=== PATIENT | male | born 2005 | race African-American/Black ===

== ENCOUNTER 2024-08-31 10:10 | Emergency (ER) | payer SELFPAY ==
[~2024-08-31] VITALS: Ht 190.5 cm; Wt 65.8 kg
[2024-08-31] MEDS: TETANUS/DIPHTHERIA TOX ADULT 0.5 ML SYR IM ONE (10:55)
[2024-08-31] MEDS ORDERED: CEPHALEXIN500 MG PO (12:07)
[2024-08-31] MEDS ORDERED: DOXYCYCLINE HY100 MG PO (12:07)
[2024-08-31 12:32] VITALS: PULSE 70; RESP 18; TEMP 98.4; O2SAT 99
== END 2024-08-31 12:36 | disposition home or self-care (01) ==
LOC: ER 10:37
DX: S61.411A Laceration without foreign body of right hand, initial encounter (principal); W22.09XA Striking against other stationary object, initial encounter; Y92.89 Other specified places as the place of occurrence of the external cause; F17.210 Nicotine dependence, cigarettes, uncomplicated
CPT/HCPCS: 90714; 99284